=== PATIENT | female | born 1980 | race Caucasian/White ===

== ENCOUNTER 2017-05-05 12:42 | Emergency (ER) | payer BC ==
[~2017-05-05] VITALS: Ht 165.1 cm; Wt 64.9 kg
[2017-05-05 14:48] VITALS: BP 124/76
== END 2017-05-05 14:48 | disposition home or self-care (01) ==
LOC: ED 12:42
DX: G44.209 Tension-type headache, unspecified, not intractable (principal); G50.0 Trigeminal neuralgia
CPT/HCPCS: J2001